=== PATIENT | male | born 1975 | race African-American/Black ===

== ENCOUNTER 2016-03-10 10:31 | Emergency (ER) | payer OTHER ==
[~2016-03-10] VITALS: Ht 182.9 cm; Wt 129.8 kg
[~2016-03-10 10:31] MED LIST: ALBUTEROL2.5 MG/3 M IH; MOTRIN800 MG PO; NORCO 5/3251 TABLET PO; TESSALON200 MG PO; ZOFRAN ODT4 MG PO
[2016-03-10 10:41] VITALS: BP 134/100
[2016-03-10] MEDS ORDERED: VOLTAREN75 MG PO (11:16)
[2016-03-10] MEDS ORDERED: FLEXERIL10 MG PO (11:16)
[2016-03-10] MEDS ORDERED: ULTRAM50 MG PO (11:16)
== END 2016-03-10 11:33 | disposition home or self-care (01) ==
LOC: EME 10:31
DX: S39.012A Strain of muscle, fascia and tendon of lower back, initial encounter (principal); M25.561 Pain in right knee; I10 Essential (primary) hypertension; X50.9XXA Other and unspecified overexertion or strenuous movements or postures, initial encounter
CPT/HCPCS: 99281; 99284

== ENCOUNTER 2016-06-01 11:25 | Emergency (ER) | payer OTHER ==
[~2016-06-01] VITALS: Ht 182.9 cm; Wt 135.1 kg
[~2016-06-01 11:25] MED LIST changes: +FLEXERIL10 MG PO; +ULTRAM50 MG PO; +VOLTAREN75 MG PO
[2016-06-01] MEDS ORDERED: ULTRAM50 MG PO (13:06)
[2016-06-01] MEDS ORDERED: FLEXERIL10 MG PO (13:06)
[2016-06-01] MEDS ORDERED: NAPROSYN500 MG PO (13:06)
[2016-06-01 14:22] VITALS: BP 155/111
== END 2016-06-01 14:22 | disposition home or self-care (01) ==
LOC: EME 11:25
DX: S43.402A Unspecified sprain of left shoulder joint, initial encounter (principal); S83.92XA Sprain of unspecified site of left knee, initial encounter; I10 Essential (primary) hypertension; V49.40XA Driver injured in collision with unspecified motor vehicles in traffic accident, initial encounter; Y92.488 Other paved roadways as the place of occurrence of the external cause; J45.909 Unspecified asthma, uncomplicated; Z87.891 Personal history of nicotine dependence
CPT/HCPCS: 73030; 73564; 99281; 99284